=== PATIENT | female | born 2000 | race Caucasian/White ===

== ENCOUNTER 2021-05-08 23:31 | Emergency (ER) | payer OTHER, SELFPAY ==
[2021-05-08 23:32] VITALS: BP 109/66; PULSE 64; RESP 15; TEMP 36.8; O2SAT 99
[2021-05-08 23:48] LABS: Basophils Absolute Auto 0.1 K/mm3 (0.0-0.1); Basophils Percent Auto 0.4 % (0.2-1.2); Eosinophils Percent Auto 0.3 % (0-4.4); Hematocrit 40.4 % (37.0-47.0); Immature Granulocyte Absolute 0.04 K/mm3 (0.00-0.031); Immature Granulocyte Percent A 0.4 % (0-0.5); Lymphocytes Absolute Auto 0.46 K/mm3 (0.9-3.2); Lymphocytes Percent Auto 4.1 % (18.3-44.2); Mean Corpuscular HGB Conc 34.7 g/dl (32-36); Mean Corpuscular Hemoglobin 30.6 pg (26-34); Mean Corpuscular Volume 88.4 fl (80-100); Monocytes Absolute Auto 0.5 K/mm3 (0.1-0.6); Monocytes Percent Auto 4.1 % (2.6-8.5); Neutrophils Absolute Auto 10.3 K/mm3 (1.3-6.7); Neutrophils Percent Auto 90.7 % (45.5-73.1); Platelet Count Result 301 k/mm3 (150-375); Red Blood Count 4.57 M/mm3 (4.2-5.4); Red Cell Distribution Width 12.6 % (11.5-14.5); White Blood Count 11.3 K/mm3 (4.5-10.0)
[2021-05-09 00:04] LABS: Alanine Aminotransferase 13 U/L (4-35); Alkaline Phosphatase 43 U/L (38-126); Anion Gap 11 mmol/L (8-16); Aspartate Amino Transferase 19 U/L (14-36); Bilirubin,Total 0.7 mg/dL (0.2-1.3); Blood Urea Nitrogen 16 mg/dL (7-17); Calcium 9.5 mg/dL (8.4-10.2); Carbon Dioxide 24 mmol/L (22-30); Chloride 104 mmol/L (98-107); Estimated CRCL calculation 106 ml/min; Estimated Glomerular Filt Rate > 60; Lipase 52 U/L (23-300); Potassium 3.9 mmol/L (3.4-5.0); Sodium 139 mmol/L (137-145)
[2021-05-09 00:26] LABS: Add Urine Microscopic? YES; Appearance Urine Clear (Clear); Bacteria Urine Trace /hpf; Bilirubin Urine Negative (Negative); Blood Urine Negative (Negative); Color Urine Yellow (Yellow); Glucose Urine UA Negative (Negative); Ketones Urine 2+ mg/dL (Negative); Leukocyte Esterase Ur Negative LEU/UL (Negative); Mucus Urine Heavy /lpf; Nitrate Urine Negative (Negative); Protein Urine 1+ mg/dL (Negative); Squamous Epithelial Cell Urine Many /hpf (Few); Urobilinogen Urine Negative mg/dL (<2.0); WBC Urine 0-3 /hpf
[2021-05-09 00:30] LABS: Specific Grav Ur 1.035 (1.001-1.035)
[2021-05-09 00:32] LABS: Glucose 109 mg/dL (65-110)
--- NOTE | 2021-05-09 00:38 | PC.NURSE ---
Pt to intake desk to notify RN she is going to Check myself out. I am not feeling well enough to wait. I am gonna go home and rest and try to wait this out. This RN offered repeat vitals, pt declined and said she just wanted to leave. Ambulated out w/ steady gait and in no obvious distress.
== END 2021-05-09 00:38 | disposition left against medical advice (07) ==
PROVIDERS: Emergency Provider General Practice
DX: R11.2 Nausea with vomiting, unspecified (principal)
CPT/HCPCS: 36415; 80053; 81001; 81025; 83690; 85025; 99199

== ENCOUNTER 2022-05-22 11:25 | Outpatient (CLI) | payer OTHER, SELFPAY ==
--- NOTE | ~2022-05-22 | XR_ITS ---
EXAMINATION: XR hysterosalpingogram INDICATION: Infertility TECHNIQUE: Hysterosalpingogram was performed by Dr. Benito Arnett MD with fluoroscopic guidanc jenn Salinas was present to obtain fluoroscopic images. Fluoroscopy exposure time was 0.5 minutes. The DAP fo r this procedure was 5.125 Gycm2. FINDINGS: Retention Representative image demonstrates an unremarkable pelvis. Fluoroscopic images demonstrate a normal appearing endometrial cavity which has been cannulated. Upon injection of contrast, the left fallopi an tube opacifies and is normal in appearance. There is no definite opacification of the right fallop ravinder tube. There is free spillage on the left. Uterus is without evidence of synechia. IMPRESSION: Patent left fallopian tube. Reviewed, dictated and finalized at location A. IMPRESSION: Patent left fallopian tube.
== END 2022-05-22 11:26 | disposition home or self-care (01) ==
PROVIDERS: PCP Physician Assistant; Visit Provider Obstetrics & Gynecology
DX: N97.9 Female infertility, unspecified (principal)
CPT/HCPCS: 58340; 74740; Q9966

== ENCOUNTER 2022-10-08 10:25 | Emergency (ER) | payer OTHER, SELFPAY ==
--- NOTE | ~2022-10-08 | US_ITS ---
US OB limited 10/08/2022 12:43 Indication: Vomiting. Twin . Procedure: Real-time Limited obstetrical ultrasound Comparison: No prior studies for comparison. Findings: There are twin living intrauterine pregnancies. Twin A in vertex presentation and twin B in breech presentation. heart rate is 159 BPM for twin A and 157 BPM for twin B. Placenta is post erior. Amniotic fluid volume is subjectively normal. No significant abnormalities identified. Impression: 1: Twin living intrauterine . No significant abnormalities identified. Reviewed, dictated and finalized at location B. [employer]ACHINE Impression: 1: Twin living intrauterine . No significant abnormalities identified.
[2022-10-08 10:34] VITALS: BP 120/67; PULSE 98; RESP 18; TEMP 36.6; O2SAT 98
[2022-10-08 11:04] LABS: Basophils Percent Auto 0.4 % (0.2-1.2); Eosinophils Absolute Auto 0.1 K/mm3 (0-0.3); Eosinophils Percent Auto 0.8 % (0-4.4); Hemoglobin 11.7 g/dL (12.0-15.0); Immature Granulocyte Absolute 0.04 K/mm3 (0.00-0.031); Immature Granulocyte Percent A 0.4 % (0-0.5); Lymphocytes Percent Auto 10.1 % (18.3-44.2); Mean Corpuscular HGB Conc 34.4 g/dl (32-36); Mean Corpuscular Hemoglobin 29.3 pg (26-34); Mean Corpuscular Volume 85.2 fl (80-100); Mean Platelet Volume 9.9 fl (7.4-10.4); Monocytes Absolute Auto 0.6 K/mm3 (0.1-0.6); Monocytes Percent Auto 5.7 % (2.6-8.5); Neutrophils Absolute Auto 8.1 K/mm3 (1.3-6.7); Neutrophils Percent Auto 82.6 % (45.5-73.1); Platelet Count Result 323 k/mm3 (150-375); Red Blood Count 3.99 M/mm3 (4.2-5.4); Red Cell Distribution Width 12.7 % (11.5-14.5); White Blood Count 9.9 K/mm3 (4.5-10.0)
[2022-10-08 11:17] LABS: Alanine Aminotransferase 41 U/L (6-35); Albumin Level 4.2 g/dL (3.5-5.1); Alkaline Phosphatase 61 U/L (38-126); Anion Gap 7 mmol/L (8-16); Aspartate Amino Transferase 30 U/L (14-36); Bilirubin,Total 0.4 mg/dL (0.2-1.3); Blood Urea Nitrogen 9 mg/dL (7-17); Calcium 9.2 mg/dL (8.4-10.2); Carbon Dioxide 24 mmol/L (22-30); Chloride 99 mmol/L (98-107); Estimated CRCL calculation 171 ml/min; Estimated Glomerular Filt Rate > 60; Glucose 87 mg/dL (65-110); Lipase 52 U/L (23-300); Potassium 3.5 mmol/L (3.4-5.0); Sodium 130 mmol/L (137-145)
[2022-10-08] MEDS: ONDANSETRON INJ 4 MG/2 ML VIAL IV PUSH (11:32)
[2022-10-08] MEDS: SODIUM CHLORIDE 0.9% IV 1,000 ML 999 ML IV CONT ×2 (11:32→12:42)
[2022-10-08 11:40] LABS: Appearance Urine Turbid (Clear); Bacteria Urine 4+ /hpf; Bilirubin Urine 1+ (Negative); Blood Urine Negative (Negative); Color Urine Dark Yellow (Yellow); Glucose Urine UA Negative (Negative); Ketones Urine 3+ mg/dL (Negative); Leukocyte Esterase Ur 3+ LEU/UL (Negative); Mucus Urine Present /lpf; Nitrate Urine Negative (Negative); Protein Urine 1+ mg/dL (Negative); RBC Urine 0-2 /hpf (0-2); Specific Grav Ur 1.027 (1.001-1.035); Squamous Epithelial Cell Urine Many /hpf (Few); WBC Urine 21-50 /hpf; pH Urine 6.5 (5.0-9.0)
[2022-10-08 11:42] LABS: Add Urine Microscopic? YES
--- NOTE | 2022-10-08 12:17 | ED.NAVMDI ---
HPI - Nausea/Vomiting/Diarrhea General Chief complaint: Nausea/Vomiting/Diarrhea Stated complaint: 17 wks preg, vomiting Time Seen by Provider: 10/08/22 10:50 Source: patient Mode of arrival: ambulatory Limitations: no limitations History of Present Illness HPI Narrative: This is a 22 year old , 16 weeks , that presents to the ER for nausea and vomiting. Ongoing over the last day. Does report some trouble with nausea and vomiting this . But since yesterday she has not really been able to keep anything down. Her OB recommended she come to the ER for IV fluid hydration. Her OB is Dr. Carmela Arnett. She has had routine care thus far. This is a twin . Denies fevers, abdominal pain, dysuria, hematuria, vaginal bleeding, or diarrhea. Related Data Allergies Allergy/AdvReac Type Severity Reaction Status Date / Time No Known Allergies Allergy Unverified 05/16/14 18:00 Review of Systems Review of Systems: CONSTITUTIONAL: Denies fever GASTROINTESTINAL: Reports nausea and vomiting. Denies abdominal pain, or diarrhea. GENITOURINARY: Denies dysuria or hematuria. All systems reviewed & are unremarkable except as noted in HPI and below PMFSH Past Medical History Medical History (Updated 10/08/22 @ 15:29 by Isidra Jalloh PA-C) No active medical problems Social History Social History (Updated 10/08/22 @ 12:19 by Isidra Jalloh PA-C) Smoking status: Never smoker Exam Narrative: GENERAL: Well-appearing, well-nourished, and in no acute distress. HEAD: Normocephalic, atraumatic. EYES: EOMI. ENT: Mucous membranes moist. Oropharynx without tonsillar hypertrophy exudate or other lesions. CHEST: Clear to auscultation. No respiratory distress. No wheezes rales or rhonchi HEART: Regular rate and rhythm. No murmur heard. Normal peripheral pulses. ABDOMEN: Gravid, nontender, nondistended, normal active bowel sounds. No CVA tenderness EXTREMITIES: Normal range of motion. No edema. SKIN: Warm, dry, no rash. NEURO: No focal deficits. Alert and oriented x3. PSYCH: Normal mood and affect Course Course Emergency Course: Patient was updated on workup and agrees with plan of care Vital Signs Vital signs: Vital Signs Temperature 97.9 F 10/08/22 10:34 Pulse Rate 98 10/08/22 10:34 Respiratory Rate 18 10/08/22 10:34 Blood Pressure 120/67 10/08/22 10:34 Pulse Oximetry 98 10/08/22 10:34 Oxygen Delivery Room Air 10/08/22 10:34 Temperature 97.9 F 10/08/22 10:34 Pulse Rate 90 10/08/22 13:55 Respiratory Rate 16 10/08/22 13:55 Blood Pressure 122/86 10/08/22 13:55 Pulse Oximetry 99 10/08/22 13:55 Oxygen Delivery Room Air 10/08/22 10:34 MDM - Nausea/Vomiting/Diarrhea MDM Narrative Medical decision making narrative: Patient presents to the emergency department for nausea and vomiting of . She is afebrile and nontoxic-appearing. Her vitals are stable. CBC is without leukocytosis. Shows normocytic anemia with hemoglobin of 11.7. Metabolic panel and lipase without concerning findings. Urine with evidence of dehydration. Also with 3+ leuk esterase and 21-50 white blood cells. There are many squamous epithelial cells. Patient does not have any current urinary symptoms. Likely a contaminated catch. This will be sent for a culture. Obstetrics ultrasound shows a twin living intrauterine . No significant abnormalities. I did attempt to reach her OB without success. Patient does have follow-up in clinic in 2 days. She is stable and felt appropriate for further outpatient evaluation. She reports much improvement after IV fluids and was able to tolerate p.o. challenge. She was given warnings to return to the ER Differential Diagnosis Differential diagnosis: Likely food poisoning, gastroenteritis and other (nausea and vomiting of ) Lab Data Attestation: I reviewed the patient's lab results. 10/08/22 10:57 10/08/22 10:
[2022-10-08 13:55] VITALS: BP 122/86; PULSE 90; RESP 16; O2SAT 99
[2022-10-08 15:46] VITALS: BP 132/74; PULSE 86; RESP 16; O2SAT 98
== END 2022-10-08 15:47 | disposition home or self-care (01) ==
PROVIDERS: Emergency Provider Physician Assistant; PCP Obstetrics & Gynecology
DX: O21.0 Mild hyperemesis gravidarum (principal); Z3A.16 16 weeks gestation of pregnancy; R82.71 Bacteriuria
CPT/HCPCS: 36415; 76815; 80053; 81001; 83690; 85025; 87086; 87088; 96361; 96374; 99284; J2405; J7030

== ENCOUNTER 2023-01-21 08:29 | Observation (INO) | payer OTHER, SELFPAY ==
[2023-01-21] VITALS (13 sets, daily range): BP systolic 116–130; BP diastolic 69–79; PULSE 94–112; O2SAT 96–100
[2023-01-21] MEDS: ONDANSETRON INJ 4 MG/2 ML VIAL IV PUSH (09:13)
[2023-01-21] MEDS: DEXTROSE 5%/LACTATED RINGERS 1,000 ML 999 ML IV CONT (09:13)
[2023-01-21] MEDS: FAMOTIDINE 20 MG/2 ML VIAL IV PUSH (09:13)
[2023-01-21] MEDS: DEXTROSE 5%/LACTATED RINGERS 1,000 ML 200 ML IV CONT (10:09)
--- NOTE | 2023-02-07 02:21 | PM.OBTRLD ---
OB - Triage/Final Diagnosis Visit Information Comments/Additional reasons for admission: I have assessed the risk for this patient, Lyndsey Humphries, and determined that she would benefit from observation care. Final Diagnosis (1) Nausea and vomiting during : Code(s): O21.9 - Vomiting of , unspecified Status: Inactive
== END 2023-01-21 11:50 | disposition home or self-care (01) ==
PROVIDERS: Admitting Provider Obstetrics & Gynecology; PCP Physician Assistant; Visit Provider Obstetrics & Gynecology
DX: O21.2 Late vomiting of pregnancy (principal); Z3A.31 31 weeks gestation of pregnancy
CPT/HCPCS: 59025; 96374; 96375; G0378; G0379; J2405; J7121

== ENCOUNTER 2023-02-21 21:43 | Observation (INO) | payer OTHER, SELFPAY ==
--- NOTE | 2023-02-21 22:28 | PM.OBTRLD ---
OB - Triage/Final Diagnosis Visit Information Date of evaluation: 02/21/23 Reason for evaluation: threatened labor Comments/Additional reasons for admission: I have assessed the risk for this patient, Lyndsey Humphries, and determined that she would benefit from observation care.
--- NOTE | 2023-02-21 22:30 | PC.NURSE ---
Dr Carmela Arnett on unit and tracing reviewed, orders to discharge patient home with tylenol 1000mg PO once.
[2023-02-21] MEDS: ACETAMINOPHEN 500 MG TABLET 1000 MG PO (22:35)
--- NOTE | 2023-02-21 22:42 | PC.NURSE ---
DC instructions given to patient and patient verbalizes understanding.
[2023-02-21 22:50] VITALS: BMI 29.5
--- NOTE | 2023-02-21 22:50 | OBADM ---
This patient, Lyndsey Humphries, admitted to the OB room Labor/Delivery/Recovery 103 for observation. Patient/family oriented to hospital policies and general routines including ID bracelet, bed and alarms, visiting hours, pain management, procedures, bathroom and other care routines, personal items, smoking policy, room service/diet, and visiting hours. Patient/Family are encouraged to report perceived risks to care and to ask questions if they do not understand what they are told or what they should do.
== END 2023-02-21 22:46 | disposition home or self-care (01) ==
PROVIDERS: Admitting Provider Obstetrics & Gynecology; PCP Physician Assistant; Visit Provider Obstetrics & Gynecology
DX: O47.03 False labor before 37 completed weeks of gestation, third trimester (principal); O30.93 Multiple gestation, unspecified, third trimester; Z3A.36 36 weeks gestation of pregnancy
CPT/HCPCS: A9270; G0378; G0379

== ENCOUNTER 2023-02-26 14:16 | Outpatient (RCR) | payer OTHER, SELFPAY ==
[2023-02-13 14:19] VITALS: BP 120/63; PULSE 99
[2023-02-20 15:35] VITALS: BP 112/65; PULSE 96
[2023-02-26 15:01] VITALS: BP 110/65; PULSE 94
== END 2023-05-14 23:59 | disposition home or self-care (01) ==
LOC: ANHOBOP 14:16
PROVIDERS: PCP Physician Assistant; Visit Provider Obstetrics & Gynecology
DX: O30.003 Twin pregnancy, unspecified number of placenta and unspecified number of amniotic sacs, third trimester (principal); Z3A.35 35 weeks gestation of pregnancy; Z3A.36 36 weeks gestation of pregnancy
CPT/HCPCS: 59025

== ENCOUNTER 2023-03-03 13:09 | Inpatient (IN) | payer OTHER, SELFPAY ==
[2023-03-03] VITALS (52 sets, daily range): BP systolic 104–148; BP diastolic 45–83; PULSE 80–114; RESP 15–16; TEMP 36.2–36.6; O2SAT 96–100; BMI 29.3
[2023-03-03] MEDS: ONDANSETRON INJ 4 MG/2 ML VIAL IV PUSH (14:21)
--- NOTE | 2023-03-03 14:35 | LDADM ---
This patient, Lyndsey Humphries, was admitted to Labor/Delivery/Recovery 102 on 03/03/23 at 13:09. Plans for labor, pain management and were discussed with patient. Patient/family oriented to hospital policies and general routines including ID bracelet, bed and alarms, visiting hours, pain management, procedures, bathroom and other care routines, personal items, smoking policy, room service/diet and guest tray routines, security routines, and visiting hours. Patient/Family are encouraged to report perceived risks to care and to ask questions if they do not understand what they are told or what they should do. See OBIX for further documentation.
[2023-03-03 14:37] LABS: Basophils Absolute Auto 0.1 K/mm3 (0.0-0.1); Basophils Percent Auto 0.7 % (0.2-1.2); Eosinophils Absolute Auto 0.1 K/mm3 (0-0.3); Eosinophils Percent Auto 0.9 % (0-4.4); Hematocrit 30.4 % (37.0-47.0); Hemoglobin 9.5 g/dL (12.0-15.0); Immature Granulocyte Absolute 0.06 K/mm3 (0.00-0.031); Immature Granulocyte Percent A 0.7 % (0-0.5); Lymphocytes Absolute Auto 1.39 K/mm3 (0.9-3.2); Lymphocytes Percent Auto 16.1 % (18.3-44.2); Mean Corpuscular HGB Conc 31.3 g/dl (32-36); Mean Corpuscular Hemoglobin 24.6 pg (26-34); Mean Corpuscular Volume 78.8 fl (80-100); Mean Platelet Volume 11.3 fl (7.4-10.4); Monocytes Absolute Auto 0.6 K/mm3 (0.1-0.6); Monocytes Percent Auto 6.5 % (2.6-8.5); Neutrophils Absolute Auto 6.5 K/mm3 (1.3-6.7); Neutrophils Percent Auto 75.1 % (45.5-73.1); Platelet Count Result 343 k/mm3 (150-375); Red Blood Count 3.86 M/mm3 (4.2-5.4); Red Cell Distribution Width 14.6 % (11.5-14.5); White Blood Count 8.6 K/mm3 (4.5-10.0)
[2023-03-03] MEDS: FAMOTIDINE 20 MG/2 ML VIAL IV PUSH (14:45)
[2023-03-03] MEDS: OXYTOCIN 30 UNITS/NS 500 ML 30 UNITS/500 ML BAG IV CONT (17:13)
[2023-03-03] MEDS: LACTATED RINGERS 1,000 ML 125 ML IV CONT ×2 (17:13→21:58)
--- NOTE | 2023-03-03 18:44 | WPDANESEPPF ---
Anes - Initial Pre Proc Eval Procedure: Labor Epidural Date/Time: 03/03/23 18:44 Surgeon: Benito Arnett MD Pre Op Diagnosis: Labor Pain Pre Op Diagnosis: Leaking Patient Data Age: 22 Gender: F Height: 1.7 m Weight: 85 kg Last Vital Signs Temp 36.2 C L 03/03/23 17:59 Pulse 101 H 03/03/23 18:31 BP 116/70 03/03/23 18:31 O2 Del Method Room Air 03/03/23 14:24 Allergies Allergy/AdvReac Type Severity Reaction Status Date / Time cyclobenzaprine Allergy Hives Verified 02/20/23 15:40 [From Flexeril] Home Medications Medication Instructions Recorded Confirmed Type metoclopramide HCl 5 mg tablet 5 mg PO Q6H PRN nausea and 10/08/22 02/20/23 Rx vomiting #14 tabs ondansetron HCl 4 mg tablet 4 mg PO Q6H PRN Nausea And 01/21/23 02/20/23 Rx Vomiting #20 tabs vits no.126-ferrous fum 1 tablet PO DAILY 02/20/23 02/20/23 History 28 mg iron-folic acid 800 mcg tablet (Classic ) Laboratory Tests 03/03/23 14:12 WBC 8.6 K/mm3 (4.5-10.0) RBC 3.86 L M/mm3 (4.2-5.4) Hgb 9.5 L g/dL (12.0-15.0) Hct 30.4 L % (37.0-47.0) MCV 78.8 L fl (80-100) MCH 24.6 L pg (26-34) MCHC 31.3 L g/dl (32-36) RDW 14.6 H % (11.5-14.5) Plt Count 343 k/mm3 (150-375) MPV 11.3 H fl (7.4-10.4) Immature Gran % (Auto) 0.7 H % (0-0.5) Neut % (Auto) 75.1 H % (45.5-73.1) Lymph % (Auto) 16.1 L % (18.3-44.2) [place] % (Auto) 6.5 % (2.6-8.5) Eos % (Auto) 0.9 % (0-4.4) Baso % (Auto) 0.7 % (0.2-1.2) Lymph # (Auto) 1.39 K/mm3 (0.9-3.2) [place] # (Auto) 0.6 K/mm3 (0.1-0.6) Eos # (Auto) 0.1 K/mm3 (0-0.3) Baso # (Auto) 0.1 K/mm3 (0.0-0.1) Abs Immat Gran (auto) 0.06 H K/mm3 (0.00-0.031) Absolute Neuts (auto) 6.5 K/mm3 (1.3-6.7) Absolute Nucleated RBC 0.0 K/mm3 (0.0-0.012) Nucleated RBC % 0.0 % (0.0-0.2) RPR Pending Blood Type A Positive Antibody Screen Negative Patient hx anesthesia problems: none Family hx anesthesia problems: none Results Review: All pre-operative results and documents have been reviewed as part of the pre-operative evaluation. [facility] Past Medical History Medical History No active medical problems Family History Family History Other Unknown family medical history Social History Social History (Updated 10/08/22 @ 12:19 by Isidra Jalloh PA-C) Smoking status: Never smoker Substance use: never Lack of Transportation: No Lack of Food: Never True Current Housing: I Have Housing Concerned About Future Housing: No Difficulty Paying Gas/Electric Bills: No Difficulty Paying for Meds: No Currently Unemployed: No Education: Bachelor's Degree Difficulty w/ Childcare or Family Care: No Spiritual care concerns: No Anes - Eval Final PreProcedure Day of Procedure 03/03/23 18:44 Patient weight: normal ASA classification: II Anesthetic plan: proceed Anesthesia type and monitoring: regional epidural and standard monitoring Results Review: All pre-operative results and documents have been reviewed as part of the pre-operative evaluation. Informed Consent: The patient's anesthetic plan and its attendant risks and benefits were discussed with the patient/family/POA. Questions were solicited and answers provided to the satisfaction of the patient/family/POA.
--- NOTE | 2023-03-03 22:18 | WPDANESEPN ---
Anes - Epidural Procedure Note Date/Time: 03/03/23 22:18 Consent: I have discussed with the patient/family/POA, the placement of an epidural catheter and the use of epidural narcotic/local anesthetic for labor analgesia and/or postoperative pain management, including associated potential risks, benefits, complications and side effects. I have discussed alternative methods of labor analgesia and/or postoperative pain management. The patient/family/POA, understand(s) and wish(es) to proceed with epidural narcotic/local anesthetic for labor analgesia and/or postoperative pain management. Time-Out: A pre-procedural Time-Out was completed immediately before starting the procedure and confirmed: Patient Identification, Site, Procedure, Patient Position and the Availability of Requisite Equipment. Clinical Indications: Labor pain Epidural Insertion Note Patient position: sitting Skin prep: chlorhexidine and sterile drape Needle: 17g Tuohy Catheter: 19g Arrow FlexTip Plus Technique: Loss of resistance. Level of insertion: L4/5 Catheter skin latrice (cm): 5 Length in epidural space (cm): 10 Skin anesthesia: lidocaine 1% Test dose: 1.5% Lidocaine with 1:[id number] Epi, negative for subarachnoid Inj and negative for intravascular Inj Time of test dose: 22:06 Observations: tolerated well Complications: none
[2023-03-04] VITALS (29 sets, daily range): BP systolic 92–134; BP diastolic 44–97; PULSE 65–151; RESP 15–17; TEMP 36.5–37.1; O2SAT 98–100
[2023-03-04] MEDS: ONDANSETRON INJ 4 MG/2 ML VIAL IV PUSH (00:40)
[2023-03-04] MEDS: CALCIUM CARBONATE (TUMS) 500 MG (200 MG ELEMENTAL) PO (00:40)
[2023-03-04] MEDS: FAMOTIDINE 20 MG/2 ML VIAL IV PUSH (01:41)
[2023-03-04] MEDS: ACETAMINOPHEN 500 MG TABLET 1000 MG PO (02:10)
[2023-03-04] MEDS: AMPICILLIN 2 GM/NS 100 ML 2 GM/100 ML BAG IVPB (03:09)
--- NOTE | 2023-03-04 05:14 | PM.OBPRVD ---
OB - Delivery Note Procedure Delivery date: 03/04/23 Induction method: None Delivery augmentation: Pitocin Delivery monitor: External FHT Route of delivery: Episiotomy description: None Laceration Description: Perineal - 2nd Degree Delivery repair: vicryl Specimen: No Quantitative Blood Loss (ml): 160 Anesthesia type: Epidural Disposition: Floor Baby Date of : 03/04/23 Time of : 04:54 Weeks of gestation at delivery: 37 gender: Female Weight (pounds): 5 Weight (ounces): 10 presentation: vertex position: Right Occiput Anterior Placenta delivery description: Spontaneous Cord Vessel Description: 3 Vessels score one minute: 9 score five minutes: 9 Twins 2: Date of : 03/04/23 Time of : 04:58 Weeks of gestation at delivery: 37 gender: Female Weight (pounds): 4 Weight (ounces): 13 presentation: vertex position: Left Occiput Posterior Placental delivery description: Spontaneous Cord Vessel Description: 3 Vessels, Nuchal Cord, Loose and Reduced score one minute: 8 score five minutes: 9 Narrative: baby B brought to vertex via external version
--- NOTE | 2023-03-04 05:20 | PM.IMHP ---
H&P: HPI History of Present Illness Date/Time: 03/04/23 05:20 Chief Complaint: spontaneous rupture membranes at over 900 on 03/03/2023 Narrative: patient 22 year 1 para 0 bilateral twins admitted at 37 weeks gestation with spontaneous rupture membranes. has been really uncomplicated thus far. Baby B is transverse however a is vertex. [facility] Past Medical History Medical History No active medical problems Family History Family History Other Unknown family medical history Social History Social History Smoking status: Never smoker Substance use: never Lack of Transportation: No Lack of Food: Never True Current Housing: I Have Housing Concerned About Future Housing: No Difficulty Paying Gas/Electric Bills: No Difficulty Paying for Meds: No Currently Unemployed: No Education: Bachelor's Degree Difficulty w/ Childcare or Family Care: No Spiritual care concerns: No Meds Home Medications and Allergies Home Medications Medication Instructions Recorded Confirmed Type metoclopramide HCl 5 mg tablet 5 mg PO Q6H PRN nausea and 10/08/22 02/20/23 Rx vomiting #14 tabs ondansetron HCl 4 mg tablet 4 mg PO Q6H PRN Nausea And 01/21/23 02/20/23 Rx Vomiting #20 tabs vits no.126-ferrous fum 1 tablet PO DAILY 02/20/23 02/20/23 History 28 mg iron-folic acid 800 mcg tablet (Classic ) Allergies Allergy/AdvReac Type Severity Reaction Status Date / Time cyclobenzaprine Allergy Hives Verified 02/20/23 15:40 [From Flexeril] Vital Signs Vital Signs - 24 hr 03/03/23 13:31 03/03/23 14:01 03/03/23 14:31 Temperature Pulse Rate 99 110 H 102 H Respiratory Rate Blood Pressure 123/64 109/77 117/75 Pulse Oximetry Oxygen Delivery 03/03/23 14:00 03/03/23 15:01 03/03/23 15:31 Temperature 97.1 F L Pulse Rate 97 99 Respiratory Rate Blood Pressure 121/78 115/70 Pulse Oximetry Oxygen Delivery 03/03/23 16:01 03/03/23 16:31 03/03/23 17:01 Temperature Pulse Rate 100 114 H 94 Respiratory Rate Blood Pressure 116/68 119/74 120/76 Pulse Oximetry Oxygen Delivery 03/03/23 17:31 03/03/23 16:00 03/03/23 17:59 Temperature 97.2 F L 97.2 F L Pulse Rate 102 H Respiratory Rate Blood Pressure 118/76 Pulse Oximetry Oxygen Delivery 03/03/23 18:01 03/03/23 18:31 03/03/23 19:01 Temperature 97.8 F Pulse Rate 99 101 H 85 Respiratory Rate 16 Blood Pressure 117/67 116/70 108/45 L Pulse Oximetry Oxygen Delivery 03/03/23 19:31 03/03/23 20:01 03/03/23 20:31 Temperature Pulse Rate 93 91 94 Respiratory Rate Blood Pressure 116/69 116/71 127/73 Pulse Oximetry Oxygen Delivery 03/03/23 21:01 03/03/23 20:30 03/03/23 21:56 Temperature 97.8 F 97.9 F Pulse Rate 92 88 Respiratory Rate 16 16 Blood Pressure 122/70 120/73 Pulse Oximetry 97 Oxygen Delivery 03/03/23 21:59 03/03/23 22:01 03/03/23 22:06 Temperature Pulse Rate 86 97 Respiratory Rate Blood Pressure 121/67 117/67 Pulse Oximetry 96 96 Oxygen Delivery 03/03/23 22:07 03/03/23 22:10 03/03/23 22:11 Temperature Pulse Rate 94 99 Respiratory Rate Blood Pressure 134/72 148/80 H Pulse Oximetry 98 Oxygen Delivery 03/03/23 22:13 03/03/23 22:15 03/03/23 22:16 Temperature Pulse Rate 88 94 Respiratory Rate Blood Pressure 128/77 125/62 Pulse Oximetry 98 Oxygen Delivery 03/03/23 22:19 03/03/23 22:20 03/03/23 22:22 Temperature Pulse Rate 99 98 Respiratory Rate Blood Pressure 116/68 126/74 Pulse Oximetry 97 Oxygen Delivery 03/03/23 22:25 03/03/23 22:28 03/03/23 22:30 Temperature Pulse Rate 102 H 106 H Respiratory Rate Blood Pressure 121/77 134/79
--- NOTE | 2023-03-04 05:23 | PM.DS ---
DS: Admitting Diagnosis Discharge Date 03/06/2023 Admitting Diagnosis twin at term DS: Discharge Diagnosis Discharge Diagnosis (1) Term : Code(s): Z34.90 - Encounter for supervision of normal , unspecified, unspecified trimester Status: Acute (2) Twin : Code(s): O30.009 - Twin , unspecified number of placenta and unspecified number of amniotic sacs, unspecified trimester Status: Acute DS: Summary Hospital Course Reason for hospitalization: patient was admitted with spontaneous rupture membranes at 37 and half weeks gestation with twins Hospital Course: patient underwent successful spontaneous vaginal delivery of twins. Baby B did require external version from transverse to vertex but there were no complications. Her hospital course was unremarkable. She remained afebrile. She was up, voiding without difficulty, eating regular diet, ambulating, generally without complaints. Time Spent with Patient Time attestation: Total time spent providing and/or coordinating discharge services: Exam Const: General: cooperative, healthy appearing and comfortable Nutritional Appearance: average body habitus Orientation/consciousness: oriented to person, oriented to place and oriented to time HENMT: Head: normal to inspection Chest: Chest palpation & inspection: normal inspection of the chest Resp: Effort & Inspection: normal respiratory effort Cardio: Rate: regular rate Rhythm: regular rhythm Heart sounds: S1 normal heart sound present and S2 normal heart sound present GI: Inspection: normal to inspection DS: Data Data Completed and Pending Labs on day of discharge: Labs from last 24 hours 03/03/23 14:12 WBC 8.6 RBC 3.86 L Hgb 9.5 L Hct 30.4 L MCV 78.8 L MCH 24.6 L MCHC 31.3 L RDW 14.6 H Plt Count 343 MPV 11.3 H Immature Gran % (Auto) 0.7 H Neut % (Auto) 75.1 H Lymph % (Auto) 16.1 L [place] % (Auto) 6.5 Eos % (Auto) 0.9 Baso % (Auto) 0.7 Lymph # (Auto) 1.39 [place] # (Auto) 0.6 Eos # (Auto) 0.1 Baso # (Auto) 0.1 Abs Immat Gran (auto) 0.06 H Absolute Neuts (auto) 6.5 Absolute Nucleated RBC 0.0 Nucleated RBC % 0.0 RPR Pending Blood Type A Positive Antibody Screen Negative Discharge Plan Discharge Attending physician on discharge: Benito Barillas Discharging Clinician: Benito Barillas Patient Disposition: Home, Self-Care Activity: may shower and pelvic rest Diet: heart healthy Wound Care Instructions: follow printed instructions Patient Instructions: Antibiotic Form Stand Alone Forms: General Discharge Information Follow-up/Referrals: Benito Barillas MD [Physician] - Discharge Medications: No Action ondansetron HCl 4 mg Tablet 4 mg PO Q6H PRN (Reason: Nausea And Vomiting) Qty: 20 0RF Classic 28 mg iron- 800 mcg Tablet 1 tablet PO DAILY metoclopramide HCl 5 mg tablet 5 mg PO Q6H PRN (Reason: nausea and vomiting) Qty: 14 0RF Date of admission: 03/03/23 13:09 Primary Care Provider: Bola,Vannessa Admitting Provider: Benito Barillas Attending physician on admission: Benito Barillas Condition: Stable
[2023-03-04] MEDS: IBUPROFEN 600 MG TABLET PO (06:33)
--- NOTE | 2023-03-04 07:55 | OBPPTRN ---
Patient transferred to post room # 279 via wheelchair. Support person present. Oriented to unit, room, information board, rooming in, admission packet and security measures. Patient verbalizes understanding.
--- NOTE | 2023-03-04 13:49 | PC.NURSE ---
1056- Introductions were made and a breast pump provided due to mother deciding she wants to pump and bottle feed her infants. Instructions given on cleaning, care, usage, that there should be no pain, pumping schedule for milk production, collection, and storage of human milk. Mother is encouraged to record pumping schedule on the feeding sheet. Patient was assessed for correct placement, flange size, to pump for comfort and nipple stretching/stimulation for adequate milk production every 3 hours (8 times in 24 hours) 1-2 times at night. Mother states that pumping has a burning sensation after 5 minutes. Nipples are blueish/purple and we discussed Raynaud's syndrome and ways she can counter the discomfort. Mother voiced understanding of the education stopped pumping when company came into the room and states she might pump later she is undecided if she wants to continue the plan. Primary RN is present in the room.
[2023-03-04 13:50] LABS: Rapid Plasma Reagin Non-Reactive (NonReactive)
[2023-03-05] VITALS: BP 101/49; PULSE 60; RESP 16; TEMP 36; O2SAT 99
[2023-03-05] MEDS: IBUPROFEN 600 MG TABLET PO ×3 (00:12→17:51)
[2023-03-05 00:40] LABS: Hematocrit 26.4 % (37.0-47.0); Hemoglobin 8.5 g/dL (12.0-15.0)
[2023-03-05 05:58] VITALS: BP 111/69; PULSE 70; RESP 16; TEMP 36.6; O2SAT 100
--- NOTE | 2023-03-05 06:46 | PM.OBPNVD ---
OB - PN: Subj Subjective Date/time seen: 03/05/23 06:46 Patient comments: no complaints and pain well controlled baby status: doing well and nursing well OB - PN: Obj Data Labs 03/05/23 00:15 Labs: Laboratory Results - last 24 hr 03/03/23 03/05/23 14:12 00:15 Hgb 8.5 L Hct 26.4 L RPR Non-reactive OB - PN A/P Plan day: 1 Plan: routine care Comments: begin iron supplementation Time Spent With Patient Time: Total time spent is greater than 50% in coordination of care (as documented) at patient's floor/unit and/or counseling patient: Time with patient: less than 15 minutes Exam Const: General: cooperative, healthy appearing and comfortable Nutritional Appearance: average body habitus Orientation/consciousness: oriented to person, oriented to place and oriented to time HENMT: Head: normal to inspection Resp: Effort & Inspection: normal respiratory effort Cardio: Rate: regular rate Rhythm: regular rhythm Heart sounds: S1 normal heart sound present and S2 normal heart sound present GI: Inspection: normal to inspection ( fundus firm below the umbilicus)
[2023-03-05 07:40] VITALS: BP 106/65; PULSE 72; RESP 16; TEMP 36.2; O2SAT 99
--- NOTE | 2023-03-05 07:54 | WPDANLDPN2 ---
Anes-Prog Note L&D Date/Time: 03/05/23 07:54 Comfortable throughout: labor and delivery Neuraxial method: epidural Epidural/Spinal procedure site: clean & non-tender Neuro status: Neuro function grossly intact. Cardiovascular status: normal Respiratory status: normal Airway patency: baseline Mental status: baseline Post-Op hydration status: normal Vital Signs: Last Vital Signs Temp 36.6 C 03/05/23 05:58 Pulse 70 03/05/23 05:58 Resp 16 03/05/23 05:58 BP 111/69 03/05/23 05:58 Pulse Ox 100 03/05/23 05:58 O2 Del Method Room Air 03/05/23 00:00 Pain score (VAS): 2 I/O: Intake & Output 03/04/23 03/04/23 03/05/23 15:59 23:59 07:59 Intake Total 200 Balance 200 Post-procedural complaints: none Patient feedback: Patient satisfied with anesthetic care.
[2023-03-05] MEDS: POLYSACCHARIDE IRON COMPLEX 150 MG CAPSULE PO ×2 (08:57→17:52)
[2023-03-05] MEDS: MULTIVIT/MIN/PREN/FOL AC/IRON TABLET 1 TAB PO (08:57)
[2023-03-05] MEDS: DOCUSATE SODIUM 100 MG CAPSULE PO (08:58)
[2023-03-05 20:00] VITALS: BP 119/68; PULSE 81; RESP 16; TEMP 36.6; O2SAT 99
[2023-03-06] MEDS: IBUPROFEN 600 MG TABLET PO ×2 (00:06→09:59)
--- NOTE | 2023-03-06 07:45 | PM.OBPNVD ---
OB - PN: Subj Subjective Date/time seen: 03/06/23 07:45 Patient comments: no complaints and pain well controlled baby status: doing well OB - PN: Obj Data Labs 03/05/23 00:15 OB - PN A/P Plan day: 2 Plan: routine care, discharge home and follow up 6 weeks Time Spent With Patient Time: Total time spent is greater than 50% in coordination of care (as documented) at patient's floor/unit and/or counseling patient: Time with patient: less than 15 minutes Exam Const: General: cooperative, healthy appearing and comfortable Nutritional Appearance: average body habitus Orientation/consciousness: oriented to person, oriented to place and oriented to time HENMT: Head: normal to inspection Resp: Effort & Inspection: normal respiratory effort Cardio: Rate: regular rate Rhythm: regular rhythm Heart sounds: S1 normal heart sound present and S2 normal heart sound present GI: Inspection: normal to inspection ( fundus firm below umbilicus)
[2023-03-06 09:05] VITALS: BP 123/71; PULSE 72; RESP 18; TEMP 36.6; O2SAT 100
[2023-03-06] MEDS: MULTIVIT/MIN/PREN/FOL AC/IRON TABLET 1 TAB PO (09:58)
[2023-03-06] MEDS: DOCUSATE SODIUM 100 MG CAPSULE PO (09:59)
[2023-03-06] MEDS: POLYSACCHARIDE IRON COMPLEX 150 MG CAPSULE PO (10:02)
[2023-03-07 10:59] VITALS: BP 111/61; PULSE 90; RESP 18; TEMP 36.7; O2SAT 98
== END 2023-03-06 14:36 | disposition home or self-care (01) | DRG 807 ==
LOC: ANHLDR 03-04 05:25 → ANHOB2 03-04 07:58
PROVIDERS: Admitting Provider Obstetrics & Gynecology; PCP Physician Assistant; Visit Provider Obstetrics & Gynecology
DX: O30.003 Twin pregnancy, unspecified number of placenta and unspecified number of amniotic sacs, third trimester (principal); Z37.2 Twins, both liveborn; O69.81X2 Labor and delivery complicated by cord around neck, without compression, fetus 2; O70.1 Second degree perineal laceration during delivery; O32.2XX2 Maternal care for transverse and oblique lie, fetus 2; Z3A.37 37 weeks gestation of pregnancy
CPT/HCPCS: 36415; 84112; 85014; 85018; 85025; 86592; 86850; 86900; 86901; A9270; J0290; J2405; J2590; J2795; J7120

== ENCOUNTER 2025-07-30 12:30 | Observation (INO) | payer OTHER, SELFPAY ==
--- OUTSIDE RECORDS SUMMARY | 2025-07-30 14:10 | XMS_ITS | Clinical Summary ---
Author Organization [facility] Address [address] [place] [address] Care Team Providers Care Teacher Dancing Name Role Phone Unavailable Primary Care Provider Unavailabl e Source Comments [facility],non-owned Affiliates and Associated Physician Practices is amultiple site organization consisting of ambulatory clinics and hospital sitesin [place], [place], [place] and [place]. This disclosure is being madepursuant to the Care Everywhere program and may not contain all information available regarding this patient. Last updated 18.[facility] Allergies Active Allergy Reactions Criticality Noted Date Comments Cyclobenzaprine Urticaria Medium 09/22/2019 Medications * Be aware that medications may not be up to date on this document. Alwaysverify current medications with the patient. albuterol HFA (PROVENTIL;JES JUAN;PROAIR) 108 (90 Base) MCG/ACT inhalerIndicatio ns:Hx of wheezing Inhale 2 puffs by mouth every 6 hours as needed 1 Inhaler 09/22/2019 Active Social History Tobacco Use Types Packs/Day Years Used Date Smoking Tobacco: Never Smokeless Tobacco: Never Comments No Sex and Gender Information Value Date Recorded Sex Assigned at Not on file Legal Sex Female 5:43 AM BRASS POURER Gender Identity Not on file Sexual Orientation Not on file Last Filed Vital Signs Vital Sign Reading Time Taken Comments Blood Pressure 122/76 09/22/2019 2:31 PM BRASS POURER Pulse 83 09/22/2019 2:31 PM BRASS POURER Temperature 37.4 C (99.3 F) 09/22/2019 2:31 PM BRASS POURER Respiratory Rate 16 09/22/2019 2:31 PM BRASS POURER Oxygen Saturation 98% 09/22/2019 2:31 PM BRASS POURER Inhaled Oxygen Concentration - - Weight 69.4 kg (153 lb) 09/22/2019 2:31 PM BRASS POURER Height 167.6 cm (5' 6) 09/22/2019 2:31 PM BRASS POURER Body Mass Index 24.69 09/22/2019 2:31 PM BRASS POURER Plan of Treatment Health Maintenance Due Date Last Done Comments HIV SCREENING 2013 HPV VACCINE (1 - 3-dose series) 2013 HEPATITIS C SCREENING 09/21/2016 DTAP/TDAP/TD VACCINES (1 - Tdap) 2017 HEPATITIS B VACCINE (1 of 3 - 19+ 3-dose series) 2017 DEPRESSION SCREENING 08/12/2024 COVID-19 VACCINE (1 - 2024-2 6 season) 2025 INFLUENZA VACCINE (#1) 2025 ZOSTER VACCINE (1 of 2) 2048 HIB VACCINE Aged Out No longer eligi ble based on patient's age to complete this topic MENINGOCOCCAL (Group B) VACC INE SHARED DECISION-MAKING Aged Out No longer eligibl e based on patient's age to complete this topic MENINGOCOCCAL GROUPS A/C/Y/W VACCINE Aged Out No longer eligible b ased on patient's age to complete this topic PNEUMOCOCCAL VACCINE Aged Out No long er eligible based on patient's age to complete this topic Insurance
--- OUTSIDE RECORDS SUMMARY | 2025-07-30 14:10 | XMS_ITS | Clinical Summary ---
Author Organization [facility] Address [address] [place] [address] Care Team Providers Care Desk Editor Name Role Phone Unknown, Notinfile Primary Care Provider Unavail able Allergies Active Allergy Reactions Criticality Noted Date Comments Cyclobenzaprine Swelling Medium 03/16/2019 swelling/rash Medications levonorgestrel (KYLEENA) IUD Rx: Kyleena Acti ve Symbicort 160-4.5 mcg/actuation inhalerIndicati ons:Maintenance Therapy for Asthma Inhale 1 puff as needed (as needed for shortness of breath and wheezing) Rinse mouth with water after use to reduce aftertaste and incidence of candidiasis. Do not swallow. 1 each 1 4 Active Active Problems Problem Noted Date Diagnosed Date BMI 26.0-26.9,adult 03/29/2020 Assessment & Plan (03/29/2020 10:42 AM CDT): Weight/BMI is in healthy range. Continue healthy lifestyle to maintain. Annual physical exam 03/29/2020 Assessment & Plan (03/29/2020 10:42 AM CDT): Encouraged healthy lifestyle, good nutrition and exercise. Encouraged Calcium and Vitamin D and weight bearing exercise for bone health. Reviewed immunizations Reviewed age appropirate screenings. SOB (shortness of breath) 03/29/2020 Assessment & Plan (03/29/2020 10:42 AM CDT): Refer to [facility]. Daughter states was told to request Dr. Verónica Castorena. Will defer PFTs/CXR workup to them. IUD (intrauterine device) in place 03/29/2020 Overview (03/29/2020): Van placed by Dr. Sage in 2017--->2021 Assessment & Plan (03/29/2020 10:40 AM CDT): Van placed by Dr. Sage in 2017--->2021 Mild persistent asthma Immunizations Immunization Administration Dates Next Due Influenza, Quadrivalent, Spl it, Preservative Free, Intramuscular 05/17/2020 Pfizer SARS-CoV-2 Monovalent Vaccination (12+ Yrs) PURPLE 08/21/2021 Family History Medical History Relation Name Comments No Known Problems Father Depression Mother Hyperlipidemia Mother Relation Name Status Comments Father Alive Mother Alive Sister Alive Social History Tobacco Use Types Packs/Day Years Used Date Smoking Tobacco: Never Smokeless Tobacco: Never Alcohol Use Standard Drinks/Week Comments Never 0 (1 standard drink = 0.6 oz pur e alcohol) AUDIT-C Answer Date Recorded Q1: How often do you have a drink containing alc ohol? Never 03/29/2020 Average Number of Drinks Not on file 020 Frequency of Binge Drinking Not on file 03/12 PHQ-2 Answer Date Recorded PHQ-2 Total Score (If total score is 3 or more points, staff should administer the PHQ-9) 1 03/29/2020 Personal Safety Answer Date Recorded Getting School Help Needed Not on file 07/24 Comments Unknown Sex and Gender Information Value Date Recorded Sex Assigned at Not on file Legal Sex Female 6:56 PM TROUBLE SHOOTING MECHANIC Gender Identity Not on file Sexual Orientation Not on file Obstetrics History Para Term AB IAB SAB Ectopic Multiple Livin g Live Births 1 0 0 0 0 0 0 0 0 0 0 Date Outcome GA Total Labor Labor/2nd/3rd Weight Sex Type Anes PTL Kaylynn A1 A5 Name Clin Last Filed Vital Signs Vital Sign Reading Time Taken Comments Blood Pressure 121/76 08/19/2023 8:42 AM TROUBLE SHOOTING MECHANIC Pulse 83 08/19/2023 8:42 AM TROUBLE SHOOTING MECHANIC Temperature 36.7 C (98 F) 07/24/2023 2:45 PM TROUBLE SHOOTING MECHANIC Respiratory Rate 18 08/19/2023 8:42 AM TROUBLE SHOOTING MECHANIC Oxygen Saturation 97% 08/19/2023 8:42 AM TROUBLE SHOOTING MECHANIC Inhaled Oxygen Concentration - - Weight 73.9 kg (163 lb) 08/19/2023 8:42 AM TROUBLE SHOOTING MECHANIC Height 170.2 cm (5' 7) 08/19/2023 8:42 AM TROUBLE SHOOTING MECHANIC Body Mass Index 25.53 08/19/2023 8:42 AM TROUBLE SHOOTING MECHANIC Plan of Treatment Health Maintenance Due Date Last Done Comments Cervical Cancer Screening 1998 Hepatitis C Screening 1998 Pneumococcal vaccine <65 (2 of 2 - PPSV23, PCV20, or PCV21) 2004 03/19/2002 DTaP/Tdap/Td Vaccine (7 - Td or Tdap) 02/22/2020 02/21/2010, 03/23/2004, 02/08/2000, Additional history exists Depression Screening 03/29/2021 03/29/2020 Regular Well Visit/Exam 18-64 03/29/2021 03/29/2020 Covid-19 Vaccine (2 - 2024-2 6 season) 2025 08/21/2021 Influenza Vaccine (#1) 2025 05/17/2020 Hepatitis B Screening Completed 04/13/1999 , 1998, 1998 Varicella Vaccines Completed 02/21/2010, 10/10/1999 HPV Vaccines Completed 05/05/2012, 12/11, 10/23/2011 Insurance EMPLOYEES [employer] [employer] Address: [address] [address] [place] [address] [employer] [employer] Address: [address] [address] [place] [address] [employer] [employer] Address: [address] [address] [place] [address] Care Teams Desk Editor Relationship Specialty Start Date End Date Unknown, Notinfile PCP - General 07/24/23
--- OUTSIDE RECORDS SUMMARY | 2025-07-30 14:10 | XMS_ITS | Encounter Summary ---
Author Organization [facility] Care Team Providers Care Career Coordinator Name Role Phone No, Physician Primary Care Provider [phone] Vannessa Plaza Primary Care Provider [phone] Unknown, Notinfile Primary Care Provider Unavail able Encounter Details Date Type Department Care Team (Latest Contact Info) Description 07/23/2016 Orders Only [facility]INCONV Provider, MD Linette [address] [place] [id number] Social History Tobacco Use Types Packs/Day Years Used Date Smoking Tobacco: Never Assessed Comments Unknown Sex and Gender Information Value Date Recorded Sex Assigned at Not on file Legal Sex Female 6:56 PM GAS APPLIANCE INSTALLER Gender Identity Not on file Sexual Orientation Not on file documented as of this encounter Plan of Treatment Not on file documented as of this encounter Procedures Procedure Name Priority Date/Time Associated Diagnosis Comments SCAN - LABS 07/23/2016 12:00 AM GAS APPLIANCE INSTALLER documented in this encounter Results * SCAN - LABS (07/23/2016 12:00 AM GAS APPLIANCE INSTALLER) Narrative 07/23/2016 12:00 AM GAS APPLIANCE INSTALLER Ordered by an unspecified provider. us Historical Provider Final Res ult documented in this encounter Visit Diagnoses Not on filedocumented in this encounter Care Teams Career Coordinator Relationship Specialty Start Date End Date No, Physician PCP - General 03/13/19 05/18/19 Vannessa Plaza PA [address] [place] [address] PCP - General Internal Medicine 05/19/19 07/23/23 Unknown, Notinfile PCP - General 07/24/23 documented as of this encounter
--- OUTSIDE RECORDS SUMMARY | 2025-07-30 14:10 | XMS_ITS | Encounter Summary ---
Author Organization [facility] Address [address] [place] [address] Phone Care Team Providers Care Coding Quality Coordinator Name Role Phone Vannessa Plaza Primary Care Provider [phone] Unknown, Notinfile Primary Care Provider Unavail able Encounter Details Date Type Department Care Team (Late st Contact Info) Description 05/09/2020 Documentation [facility] Medicine Pulmonary [address] Advanced Medicine 8th [place] [address] [place] [address] Benito Rodriguez MD [address] [place] [address] Social History Tobacco Use Types Packs/Day Years [...] staff should administer the PHQ-9) 1 03/29/2020 Comments No Sex and Gender Information Value Date Recorded Sex Assigned at Not on file Legal Sex Female 6:56 PM MANAGER FAMILY Gender Identity Not on file Sexual Orientation Not on file documented as of this encounter Plan of Treatment Not on file documented as of this encounter Visit Diagnoses Not on filedocumented in this encounter Care Teams Coding Quality Coordinator Relationship Specialty Start Date End Date Vannessa Plaza PA [address] [address] PCP - General Internal Medicine 05/19/19 07/23/23 Unknown, Notinfile PCP - General 07/24/23 documented as of this encounter
[2025-07-30 14:12] VITALS: BMI 29.3
--- NOTE | 2025-07-30 14:21 | PM.OBTRLD ---
OB - Triage/Final Diagnosis Visit Information Date of evaluation: 07/30/25 Reason for evaluation: threatened labor Comments/Additional reasons for admission: I have assessed the risk for this patient, Lyndsey Humphries, and determined that she would benefit from observation care.
== END 2025-07-30 14:30 | disposition home or self-care (01) ==
PROVIDERS: Admitting Provider Obstetrics & Gynecology; Visit Provider Obstetrics & Gynecology
DX: O47.1 False labor at or after 37 completed weeks of gestation (principal); Z3A.37 37 weeks gestation of pregnancy
CPT/HCPCS: G0378; G0379

== ENCOUNTER 2025-08-01 07:12 | Observation (INO) | payer OTHER, SELFPAY ==
[2025-08-01 08:01] VITALS: RESP 16; TEMP 36.8
[2025-08-01 09:13] VITALS: PULSE 90; O2SAT 99
[2025-08-01 09:18] VITALS: PULSE 92; O2SAT 98
[2025-08-01 09:20] VITALS: BMI 29.3
[2025-08-01 09:23] VITALS: PULSE 89; O2SAT 98
--- NOTE | 2025-08-01 09:59 | OBADM ---
This patient, Lyndsey Humphries, admitted to the OB room Labor/Delivery/Recovery 106 for observation. Patient/family oriented to hospital policies and general routines including ID bracelet, bed and alarms, visiting hours, pain management, procedures, bathroom and other care routines, personal items, smoking policy, room service/diet, and visiting hours. Patient/Family are encouraged to report perceived risks to care and to ask questions if they do not understand what they are told or what they should do.
--- NOTE | 2025-08-04 06:06 | PM.OBTRLD ---
OB - Triage/Final Diagnosis Visit Information Reason for evaluation: threatened labor Comments/Additional reasons for admission: I have assessed the risk for this patient, Lyndsey Humphries, and determined that she would benefit from observation care.
== END 2025-08-01 09:37 | disposition home or self-care (01) ==
PROVIDERS: Admitting Provider Obstetrics & Gynecology; Visit Provider Obstetrics & Gynecology
DX: O47.1 False labor at or after 37 completed weeks of gestation (principal); Z3A.37 37 weeks gestation of pregnancy
CPT/HCPCS: G0378; G0379

== ENCOUNTER 2025-08-06 13:58 | Outpatient (CLI) | payer OTHER, SELFPAY ==
--- NOTE | ~2025-08-06 | US_ITS ---
EXAMINATION: US OB limited DATE: 08/06/2025 15:50 INDICATION: Assess amniotic fluid index during third trimester . TECHNIQUE: Real-time ultrasound of the pelvis was performed. The interpreting radiologist was not present for the study. COMPARISON: None. FINDINGS: There is a single living fetus in vertex presentation. The placenta is fundal and not low-lying. heart rate is 142 beats per minute (bpm). The amniotic fluid index is 12.9 cm, which is normal (5th%-95%: 7.3-weighted 3.9 cm at 38 weeks estimated gestational age). Incidentally noted normal three-vessel cord. IMPRESSION: 1. Single living fetus in vertex presentation with heart rate of 142 bpm. 2. Normal amniotic fluid index of 12.9 cm. Reviewed, dictated and finalized at location A. [facility] IMPRESSION: 1. Single living fetus in vertex presentation with heart rate of 142 bpm . 2. Normal amniotic fluid index of 12.9 cm.
--- OUTSIDE RECORDS SUMMARY | 2025-08-06 15:04 | XMS_ITS | Clinical Summary ---
Author Organization [facility] [employer] Address [address] [place] [address] Care Team Providers Care Pony Cylinder Press Operator Name Role Phone Unavailable Primary Care Provider Unavailabl e Source Comments [facility] [employer],non-owned Affiliates and Associated Physician Practices is amultiple site organization consisting of ambulatory clinics and hospital sitesin [place], [place], [place] and [place]. This disclosure is being madepursuant to the Care Everywhere program and may not contain all information available regarding this patient. Last updated 18.[facility] [employer] Allergies Active Allergy Reactions Criticality Noted Date [...] on file Legal Sex Female 5:43 AM PRESSROOM SUPERVISOR Gender Identity Not on file Sexual Orientation Not on file Last Filed Vital Signs Vital Sign Reading Time Taken Comments Blood Pressure 122/76 09/22/2019 2:31 PM PRESSROOM SUPERVISOR Pulse 83 09/22/2019 2:31 PM PRESSROOM SUPERVISOR Temperature 37.4 C (99.3 F) 09/22/2019 2:31 PM PRESSROOM SUPERVISOR Respiratory Rate 16 09/22/2019 2:31 PM PRESSROOM SUPERVISOR Oxygen Saturation 98% 09/22/2019 2:31 PM PRESSROOM SUPERVISOR Inhaled Oxygen Concentration - - Weight 69.4 kg (153 lb) 09/22/2019 2:31 PM PRESSROOM SUPERVISOR Height 167.6 cm (5' 6) 09/22/2019 2:31 PM PRESSROOM SUPERVISOR Body Mass Index 24.69 09/22/2019 2:31 PM PRESSROOM SUPERVISOR Plan of Treatment Health Maintenance Due Date [...]
--- OUTSIDE RECORDS SUMMARY | 2025-08-06 15:04 | XMS_ITS | Clinical Summary ---
Author Organization [facility] Address [address] [place] [address] Care Team Providers Care Exercise Equipment Repair Technician Name Role Phone Unknown, Notinfile Primary Care [...] on file Legal Sex Female 6:56 PM COLLAR FUSER Gender Identity Not on file Sexual Orientation [...] Comments Blood Pressure 121/76 08/19/2023 8:42 AM COLLAR FUSER Pulse 83 08/19/2023 8:42 AM COLLAR FUSER Temperature 36.7 C (98 F) 07/24/2023 2:45 PM COLLAR FUSER Respiratory Rate 18 08/19/2023 8:42 AM COLLAR FUSER Oxygen Saturation 97% 08/19/2023 8:42 AM COLLAR FUSER Inhaled Oxygen Concentration - - Weight 73.9 kg (163 lb) 08/19/2023 8:42 AM COLLAR FUSER Height 170.2 cm (5' 7) 08/19/2023 8:42 AM COLLAR FUSER Body Mass Index 25.53 08/19/2023 8:42 AM COLLAR FUSER Plan of Treatment Health Maintenance Due Date [...] Vaccines Completed 05/05/2012, 12/11, 10/23/2011 Insurance EMPLOYEES Care Teams Exercise Equipment Repair Technician Relationship Specialty Start Date End Date Unknown, Notinfile PCP - General 07/24/23
--- OUTSIDE RECORDS SUMMARY | 2025-08-06 15:04 | XMS_ITS | Encounter Summary ---
Author Organization [facility] Address [address] [place] [address] Phone Care Team Providers Care Hooker Machine Tender Name Role Phone Vannessa Plaza Primary Care Provider [phone] Unknown, Notinfile Primary Care Provider Unavail able Encounter Details Date Type Department Care Team (Late st Contact Info) Description 05/09/2020 Documentation [facility] Medicine Pulmonary [address] [facility] Advanced Medicine 8th [place] [address] [place] [address] Benito Rodriguez MD [address] [place] [address] Social History Tobacco Use Types Packs/Day Years [...] on file Legal Sex Female 6:56 PM FILAMENT WELDER Gender Identity Not on file Sexual Orientation Not on file documented as of this encounter Plan of Treatment Not on file documented as of this encounter Visit Diagnoses Not on filedocumented in this encounter Care Teams Hooker Machine Tender Relationship Specialty Start Date End Date Vannessa Plaza PA [address] [address] PCP - General Internal Medicine 05/19/19 07/23/23 Unknown, Notinfile PCP - General 07/24/23 documented as of this encounter
[2025-08-06 15:59] VITALS: BP 112/76; PULSE 97
[2025-08-06 16:06] LABS: OBXCEM ROM Plus Negative (Negative)
== END 2025-08-06 15:55 | disposition home or self-care (01) ==
LOC: ANHOBOP 15:02 → ANHLDR 15:03
PROVIDERS: Visit Provider Obstetrics & Gynecology
DX: O42.90 Premature rupture of membranes, unspecified as to length of time between rupture and onset of labor, unspecified weeks of gestation (principal)
CPT/HCPCS: 59025; 76815; 84112